=== PATIENT | female | born 1985 | race Two or more races ===

== ENCOUNTER → 2025-02-02 | Outpatient (CLI) | payer MEDICAID, SELFPAY ==
--- NOTE | 2025-02-02 15:49 | XR_ITS ---
Examination: Abdomen AP single view Technique: AP portable supine abdomen, single view Exam date and time: February 02, 2025 1549 hours INDICATIONS: Flank pain this week. FINDINGS: No renal or ureteral calculi, no hydronephrosis Nonobstructive bowel gas pattern IMPRESSION: No renal or ureteral calculi
== END | disposition home or self-care (01) ==
PROVIDERS: Referring Provider Surgery; Visit Provider Surgery
DX: R10.9 Unspecified abdominal pain (principal)
CPT/HCPCS: 74018

== ENCOUNTER → 2025-03-06 | Outpatient (CLI) | payer MEDICAID, SELFPAY ==
--- NOTE | 2025-03-05 13:29 | ESHP_ITS ---
RE: AMBER CARTY : 1985 DATE OF ADMISSION: 03/10/2025 HISTORY OF PRESENT ILLNESS: The patient is a 39-year-old female [place]- speaking with a left-sided flank pain. She continues to have pain. This has gone on for the last 4 months. She has been to the emergency room in [place] and she was found to have a left ureteral stone. She still continues to have pain. KUB films revealed a 5 mm stone in the left lower ureter. On some exams, it showed to be 3 mm. Because of her pain, she is now scheduled to have cystoscopy, left ureteroscopy, left ureteral stone manipulation and possible laser lithotripsy. PAST MEDICAL HISTORY: She has a history of diabetes mellitus. No history of hypertension. PAST SURGICAL HISTORY: Previous surgeries included 1 . SOCIAL HISTORY: She has 3 children. HOME MEDICATIONS: She takes; 1. Metformin. 2. Iron. PHYSICAL EXAMINATION: HEENT: Normal. NECK: Supple. LUNGS: Clear. HEART: Sounds are normal. ABDOMEN: Soft without any organomegaly. No guarding. No rigidity. EXTREMITIES: Normal. LABORATORY DATA: The patient had a latest CT scan, which revealed a 3 mm distal ureteral stone in the left ureter. PLAN: Plan is cystoscopy, left ureteroscopy, stone manipulation, possible laser lithotripsy, and possible stent insertion. Planned procedure risks and complications have been discussed with the patient. The patient has understood them and agreed to proceed. DT: 13:18:10 TT: 13:27:00 Ref: [id number] - TID: [id number]
--- NOTE | 2025-03-06 06:56 | EKG_ITS ---
[facility] Test Date: 2025-03-06 Pat Name: AMBER CARTY Department: Room: - Gender: Female Commercial Litigation Associate: MIKY : 1985 Requested By: Wilbert Islas Order Number: [id number] Reading MD: Wilbert Islas Measurements Intervals [place] Rate: 82 P: 25 KS: 164 QRS: 45 QRSD: 78 T: 44 QT: 347 QTc: 407 Interpretive Statements SINUS RHYTHM No previous ECG available for comparison /store/S0/[id number]/ecg/[id number].pdf
[2025-03-06 10:06] VITALS: BMI 34.0
[2025-03-06 10:28] LABS: Collection Type, Urine Clean Catch; Squamous Epithelial Cell,Urine 0 /hpf (0-5)
[2025-03-06 11:01] LABS: Basophils # (Auto) 0.0 Thou/mm3 (0.0-0.2); Basophils % (Auto) 1 % (0-2.5); Eosinophils # (Auto) 0.2 Thou/mm3 (0.0-0.5); Eosinophils % (Auto) 3 % (0-10); Hematocrit 38.7 % (36.0-46.0); Hemoglobin 11.7 g/dL (12.0-16.0); Immature Granulocytes Auto 0.01 Thou/mm3 (0.00-0.00); Lymphocytes # (Auto) 1.8 Thou/mm3 (1.0-4.8); Lymphocytes % (Auto) 27 % (10-50); Mean Corpuscular HGB Conc 30.2 g/dl (31.0-37.0); Mean Corpuscular Hemoglobin 23.9 pg (25.0-35.0); Mean Corpuscular Volume 79 fL (80-100); Monocytes # (Auto) 0.6 Thou/mm3 (0.0-0.8); Monocytes % (Auto) 9 % (0-12); Neutrophils # (Auto) 4.0 Thou/mm3 (1.8-7.7); Neutrophils % (Auto) 60 % (37-80); Nucleated Red Blood Cell # 0.00 Thou/mm3 (0.00-0.00); Nucleated Red Blood Cell % 0 /100 WBC (0); Platelet Count 287 Thou/mm3 (140-440); RDW Standard Deviation 60.1 fL (36.4-46.3); Red Blood Count 4.89 Miln/mm3 (4.00-5.20); White Blood Count 6.6 Thou/mm3 (3.6-11.0)
[2025-03-06 11:13] LABS: Alanine Aminotransferase 29 U/L (10-49); Albumin, Serum 4.4 gm/dL (3.5-5.0); Albumin/Globulin Ratio 1.6 (1.2-2.2); Alkaline Phosphatase 61 U/L (46-116); Anion Gap 12 (7-16); Aspartate Amino Transferase 28 U/L (0-34); BUN/Creatinine Ratio 12 Ratio (12-20); Bilirubin,Total 0.4 mg/dL (0.3-1.2); Blood Urea Nitrogen 7 mg/dL (9-23); Calcium 9.3 mg/dL (8.3-10.6); Calcium (Corrected) 9.3 mg/dL (8.5-10.1); Carbon Dioxide 24.7 mMol/L (20.0-31.0); Chloride 105 mMol/L (98-107); Creatinine (Component) 0.6 mg/dL (0.6-1.3); Estimated Creatinine Clearance 125.4 mL/min (>60); Globulin 2.7 gm/dL (2.3-3.5); Glucose 119 mg/dL (74-106); Osmolality,Calculated 282 (275-295); Potassium 4.2 mMol/L (3.4-5.1); Sodium 142 mMol/L (136-145); Total Protein 7.1 gm/dL (5.7-8.2); eGFR > 60 See Note
[2025-03-06 11:21] LABS: Bilirubin,Urine Negative (Negative); Blood,Urine 3+ (Negative); Color,Urine Red (Lt Yel-Yel); Glucose, Urine Negative (Negative); Ketones,Urine Negative (Negative); Leukocyte Esterase,Urine Positive (Negative); Nitrite,Urine Negative (Negative); PH,Urine 6.0 (5.0-7.0); Protein,Urine 2+ (Neg - Trace); RBC,Urine 39811 /hpf (0-3); Specific Gravity,Urine 1.021 (1.001-1.035); Urobilinogen,Urine Negative mg/dL (0.0-1.0); WBC,Urine 259 /hpf (0-5)
[2025-03-06 11:27] LABS: Clarity,Urine Turbid (Clear/Hazy)
== END | disposition home or self-care (01) ==
LOC: SLAB 03-11 10:39
PROVIDERS: Anesthesiology; Referring Provider Surgery; Visit Provider Surgery
PROC: 0TJB8ZZ Inspection of Bladder, Via Natural or Artificial Opening Endoscopic (ICD-10-PCS; CPT 52000; principal; 2025-03-10 09:30)
PROC: (CPT 52282; 2025-03-10 09:30)
DX: Z01.812 Encounter for preprocedural laboratory examination (principal); N20.1 Calculus of ureter; Z01.810 Encounter for preprocedural cardiovascular examination
CPT/HCPCS: 36415; 80048; 80053; 81001; 85025; 87086; 93005